=== PATIENT | male | born 1930 | race Caucasian/White ===

== ENCOUNTER 2016-09-26 06:54 | Day surgery (SDC) | payer MEDICARE ==
--- NOTE | 2016-09-20 20:53 | HP ---
ADMITTING HISTORY AND PHYSICAL: DATE OF ADMISSION: 09/26/16 SURGEON: Dr. Muse. ADMITTING DIAGNOSES: 1. Hematuria. 2. 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 3. Recurrent bladder tumors. PLANNED PROCEDURE: Retrograde right ureteroscopy, right stent replacement, possible transurethral resection of bladder tumor. ADMITTING HISTORY AND PHYSICAL: William Grimm is an 86-year-old gentleman with a history of recurrent bladder cancer. He also has what appears to be a transitional cell carcinoma in the right kidney; this had caused hematuria and hydronephrosis. The hydronephrosis has resolved after stent insertion and the family made a decision not to pursue any major surgery such as the right nephrectomy. The idea is try and manage him with the least amount of procedure and he is now being brought in for stent replacement, and at this time, I would plan to place a stent which could be left in for longer (silicone stent). PAST MEDICAL HISTORY: Significant for: 1. Alzheimer's. 2. Superficial bladder cancer. MEDICATIONS ON ADMISSION: 1. Proscar 5 mg a day. 2. Aricept 10 mg a day. 3. Effexor 37.5 mg a day. ALLERGIES: No known drug allergies. PHYSICAL EXAMINATION GENERAL: Reveals a pleasant elderly gentleman. VITAL SIGNS: Blood pressure is 122/78, pulse 72 per minute, oxygen saturation 98% on room air. LUNGS: Clear bilaterally. CARDIOVASCULAR: Regular rate and rhythm. S1 and S2. ABDOMEN: Soft without mass. There is mild right flank tenderness. IMPRESSION: An 86-year-old gentleman with a history of recurrent bladder cancer as well as a tumor in the right kidney. PLAN: Planned procedure is cystoscopy, right retrograde and ureteroscopy, and stent replacement, possible transurethral resection of bladder tumors if there are any recurrent bladder tumors noted. CC: Dr. Muñiz; Dr. Rogelio Muse* [id number]/[facility] #: [id number] MTDD
[~2016-09-26 06:54] MED LIST: Buffered Lidocaine 1% SYR 3ML* 3 ML/SYR SYRINGE INTRADERM ONE; Dexamethasone IV* 4 MG/ML 1 ML (4 MG) IV SLOW PU ONE; Dexamethasone IV* 4 MG/ML 1 ML (4 MG) ONE; Famotidine IV* 10 MG/ML 2 ML (20 mg) IV ONE; Famotidine IV* 10 MG/ML 2 ML (20 mg) ONE; cefTRIAXone(*) 2 GM ADDV.VIAL IVPB ONE
[2016-09-26] MEDS ORDERED: Iohexol 180 (CONTRAST) 10 ML SDV IV ONE ×2 (07:11→09:03)
[2016-09-26] MEDS ORDERED: fentaNYL* 50 MCG/ML 2 ML VIAL (100 MCG VIAL) ONE (07:13)
[2016-09-26] MEDS ORDERED: HYDROmorphone INJ* 1 MG/ML CARPUJECT SYRINGE ONE (07:13)
[2016-09-26] MEDS ORDERED: Midazolam* 1 MG/ML 2 ML VIAL (2 MG) ONE (07:13)
[2016-09-26] MEDS ORDERED: Ondansetron INJ* 2 MG/ML VIAL ONE (08:03)
[2016-09-26] MEDS ORDERED: Lidocaine 2% PF * 5 ML VIAL ONE (08:03)
[2016-09-26] MEDS ORDERED: Ketorolac INJ* 30 MG/ML 1 ML VIAL ONE (08:03)
[2016-09-26] MEDS ORDERED: Propofol* 10 MG/ML 20 ML BTL IV PUSH ONE (08:03)
[2016-09-26] MEDS ORDERED: Furosemide IV* 10 MG/ML 2 ML VIAL (20 MG) ONE (08:23)
[2016-09-26] MEDS ORDERED: EPHEDrine (Pressors)* 50 MG/ML VIAL ONE (08:24)
[2016-09-26] MEDS ORDERED: Ondansetron INJ* 2 MG/ML VIAL IV PRN (08:50)
[2016-09-26] MEDS ORDERED: fentaNYL* 50 MCG/ML 2 ML VIAL (100 MCG VIAL) IV PRN (08:50)
[2016-09-26] MEDS ORDERED: PROCHLORPERAZINE INJ 5 MG/ML 2 ML VIAL IV PRN (08:50)
[2016-09-26] MEDS ORDERED: DiMENhydriNATE IV* 50 MG/ML VIAL IV PUSH PRN (08:50)
--- NOTE | 2016-09-26 09:05 | RAD ---
INDICATION: RIGHT retrograde pyelogram and stent placement. COMPARISON: July 18, 2016 TECHNIQUE: 11 seconds fluoroscopy. FINDINGS: Retrograde pyelogram documents moderate calyceal blunting. Ureteral stent placed with documented decompression of the collecting system. IMPRESSION: Procedural fluoroscopy. CPT II Codes: 6045F
[2016-09-26 10:48] VITALS: BP 122/60
--- NOTE | 2016-09-27 01:38 | OP ---
DATE OF OPERATION: 09/26/16 - [facility] DATE OF : 30 - AGE: 86 years, male. SURGEON: Rogelio Muse MD ANESTHESIOLOGIST: Dr. Logan. ANESTHESIA: General. PRE-OP DIAGNOSES: 1. Right hydronephrosis. 2. Hematuria. 3. 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 4. Bladder tumors. POST-OP DIAGNOSES: 1. Right hydronephrosis. 2. Hematuria. 3. 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 4. Bladder tumors. OPERATIVE PROCEDURES: 1. Cystoscopy. 2. Transurethral resection, bladder tumor (2 to 3 cm). 3. Right retrograde pyelogram and right ureteral stent replacement. COMPLICATIONS: None. STENT USED: An 8.5-Burmese 28-cm silicon stent, right ureter. INDICATIONS: William Grimm is an 86-year-old gentleman with transitional cell neoplasm of the right kidney and recurrent bladder tumors. The family had made a decision that they did not want to proceed with nephrectomy and he is being managed with indwelling stent to relieve the hydronephrosis and pain that had been associated with it. OPERATIVE FINDINGS: 1. Normal-appearing urethra. 2. Mild to moderately enlarged prostate. 3. Two small areas in posterior bladder wall, possibly representing recurrent bladder tumor (appeared superficial). 4. Stricture, right proximal ureter, with right hydronephrosis and filling defect consistent with transitional cell neoplasm, right kidney. POSTOPERATIVE CONDITION: Stable. DESCRIPTION OF PROCEDURE: After induction of general anesthesia, the patient was placed in dorsal lithotomy position. Sequential compression devices were in place and functioning. Initial cystoscopy revealed a normal-appearing urethra. The bladder was examined. The previously placed stent was removed. There were a couple of areas in the posterior bladder wall with an appearance suspicious for superficial transitional cell neoplasm. Director Talent biopsies were obtained and sent for histopathology and then these areas were carefully resected. Next, attention was directed to the right retrograde pyelogram. This revealed a stricture in the proximal right ureter with right hydronephrosis and a filling defect in the renal pelvis. A new 8.5-Burmese 28-cm silicon stent was introduced under fluoroscopic monitoring with good proximal and distal positioning obtained. The patient tolerated the procedure satisfactorily and was transferred back to the recovery area in stable condition. CC: Eric Muñiz MD; Rogelio Muse MD* [id number]/[facility] #: [id number] MARIO
== END 2016-09-26 11:11 | disposition home or self-care (01) ==
LOC: OR 06:54
PROVIDERS: ATTEND Urology
DX: C67.4 Malignant neoplasm of posterior wall of bladder (principal); R31.9 Hematuria, unspecified; N13.30 Unspecified hydronephrosis
CPT/HCPCS: 74420; 88305; C1876; J0696; J1100; J1170; J1885; J1940; J2250; J2405; J2704; J3010

== ENCOUNTER 2017-01-09 06:02 | Day surgery (SDC) | payer MEDICARE ==
--- NOTE | 2017-01-07 11:58 | HP ---
CC: Eric Muñiz MD * ADMITTING HISTORY AND PHYSICAL: DATE OF ADMISSION: 01/09/17 AGE: 86 years, male. ADMISSION DIAGNOSES: 1. Gross hematuria. 2. History of bladder cancer. 3. 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 4. Right hydronephrosis. PLANNED PROCEDURE: Cystoscopy, possible transurethral resection of bladder tumors, right retrograde and right stent change. SURGEON: Dr. Muse. ADMITTING HISTORY AND PHYSICAL: William Grimm is a very pleasant 86-year-old gentleman with history of recurrent episodes of gross hematuria. He has a history of recurrent superficial bladder cancer and also what is probably a transitional cell carcinoma involving the right kidney and proximal ureter and resulting in right hydronephrosis, which has been managed with right stent insertion. I have had a detailed discussion with his family on several occasions and their decision has been to hold of on any major surgery for the right kidney such as a nephrectomy. PAST MEDICAL HISTORY: Significant for: 1. Alzheimer's. 2. Recurrent superficial bladder cancer. MEDICATIONS ON ADMISSION: 1. Aricept 10 mg daily. 2. Proscar 5 mg daily. 3. Effexor 37.5 mg daily. REVIEW OF SYSTEMS: He denies any chest pain or shortness of breath. There is no history of diabetes mellitus or any other major systemic illness. PHYSICAL EXAMINATION GENERAL: Reveals a very pleasant, comfortable-appearing elderly gentleman. VITAL SIGNS: Blood pressure is 110/64, pulse 68 per minute, oxygen saturation 98% on room air. CARDIOVASCULAR: Regular rate and rhythm. S1 and S2. LUNGS: Clear bilaterally. ABDOMEN: Soft with mild right flank tenderness. IMPRESSION: An 86-year-old gentleman with a history of recurrent superficial bladder cancer and right hydronephrosis, likely secondary to transitional cell carcinoma of the right kidney and proximal ureter. PLANNED PROCEDURE: Cystoscopy, possible; transitional resection of bladder tumors, right retrograde and right stent change. [id number]/[facility] #: [id number] [facility]
[~2017-01-09 06:02] MED LIST changes: +Buffered Lidocaine 0.9% SYRIN* 5 ML/SYR SYRINGE INTRADERM ONE; -Buffered Lidocaine 1% SYR 3ML* 3 ML/SYR SYRINGE INTRADERM ONE; -Dexamethasone IV* 4 MG/ML 1 ML (4 MG) IV SLOW PU ONE; -Dexamethasone IV* 4 MG/ML 1 ML (4 MG) ONE; -Famotidine IV* 10 MG/ML 2 ML (20 mg) IV ONE; -Famotidine IV* 10 MG/ML 2 ML (20 mg) ONE; -cefTRIAXone(*) 2 GM ADDV.VIAL IVPB ONE
[2017-01-09] MEDS ORDERED: Buffered Lidocaine 0.9% SYRIN* 5 ML/SYR SYRINGE ONE (06:06)
[2017-01-09] MEDS ORDERED: cefTRIAXone(*) 2 GM ADDV.VIAL IVPB ONE (06:06)
[2017-01-09] MEDS ORDERED: Iohexol 180 (CONTRAST) 10 ML SDV IV ONE (07:21)
[2017-01-09] MEDS ORDERED: fentaNYL* 50 MCG/ML 2 ML VIAL (100 MCG VIAL) ONE ×2 (07:59→09:00)
[2017-01-09] MEDS ORDERED: Propofol* 10 MG/ML 20 ML BTL IV PUSH ONE (08:49)
[2017-01-09] MEDS ORDERED: Lidocaine 2% PF * 5 ML VIAL ONE (08:49)
[2017-01-09] MEDS: fentaNYL* 50 MCG/ML 2 ML VIAL (100 MCG VIAL) IV PRN ×2 (09:04→09:22)
[2017-01-09] MEDS ORDERED: Furosemide IV* 10 MG/ML 2 ML VIAL (20 MG) ONE ×2 (09:26→14:43)
--- NOTE | 2017-01-09 09:33 | RAD ---
INDICATION: RIGHT retrograde pyelogram/ stent exchange. TECHNIQUE: 5 seconds fluoroscopy. FINDINGS: RIGHT retrograde pyelogram demonstrates only mild upper pole calyceal blunting. RIGHT ureteral stent placed. IMPRESSION: Procedural fluoroscopy. CPT II Codes: 6045F
--- NOTE | 2017-01-09 10:19 | OP ---
CC: Dr. Eric Muñiz * DATE OF OPERATION: 01/09/17 - [facility] DATE OF : 30 SURGEON: Rogelio Muse MD ANESTHESIOLOGIST: Dr. Smith. ANESTHESIA: General. PRE-OPERATIVE DIAGNOSES: 1. Recurrent superficial bladder cancer. 2. Right hydronephrosis. 3. 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 POST-OPERATIVE DIAGNOSES: 1. Recurrent superficial bladder cancer. 2. Right hydronephrosis. 3. 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 OPERATIVE PROCEDURE: 1. Cystoscopy, transurethral resection and fulguration of bladder tumors (2-3 cm). 2. Right retrograde and right ureteral stent change. COMPLICATIONS: None. BLOOD LOSS: Minimal. STENT USED: 8.5 Uzbek 28 cm silicone stent, right ureter. INDICATIONS: William Grimm is an 86-year-old gentleman with a history of recurrent superficial bladder cancer, right hydronephrosis and a probable transitional cell carcinoma of the right kidney. OPERATIVE FINDINGS: 1. Few small superficial recurrent bladder tumors, posterior bladder wall. 2. Fullness of the right collecting system with filling defects noted consistent with probable transitional cell carcinoma. DESCRIPTION OF PROCEDURE: After induction of general anesthesia, the patient was placed in dorsal lithotomy position. Sequential compression devices were in place and functioning. Initial cystoscopy revealed mild strictures in the distal urethra. The prostate was mildly enlarged. The bladder was examined. The previous placed stent was removed. A guidewire was introduced into the right ureter. Retrograde pyelogram revealed fullness of the right collecting system with filling defects consistent with transitional cell carcinoma. A new 8.5 Uzbek 28 cm silicone stent was placed with good proximal and distal positioning noted on fluoroscopy. Attention was directed to the bladder tumor. There were few small papillary low - grade appearing tumors noted in the posterior bladder wall and treasury representative biopsies were obtained and sent for histopathology. Next, using the resecto- scope, all of the visible tumors were resected and/or fulgurated. Hemostasis appeared satisfactory at the end of the procedure and there was no evidence of bladder perforation. An 18-Uzbek Quevedo was placed for temporary bladder drainage. The patient tolerated the procedure satisfactorily and was transferred back to the recovery area in stable condition. [id number]/[facility] #: [id number] [facility]
[2017-01-09 16:00] VITALS: BP 171/75
== END 2017-01-09 16:35 | disposition home or self-care (01) ==
LOC: OR 06:02
PROVIDERS: ATTEND Urology
DX: C67.4 Malignant neoplasm of posterior wall of bladder (principal); N13.30 Unspecified hydronephrosis; Z96.0 Presence of urogenital implants; N35.9 Urethral stricture, unspecified; N40.0 Benign prostatic hyperplasia without lower urinary tract symptoms; G30.9 Alzheimer's disease, unspecified; F02.80 Dementia in other diseases classified elsewhere, unspecified severity, without behavioral disturbance, psychotic disturbance, mood disturbance, and anxiety
CPT/HCPCS: 74420; 88305; C1876; J0696; J1940; J2704; J3010

== ENCOUNTER 2017-01-10 20:42 | Inpatient (IN) | payer MEDICARE ==
[2017-01-10] MEDS ORDERED: NS 0.9% 1000 ML* 1,000 ML IV ONE (23:47)
[2017-01-10] MEDS ORDERED: Morphine INJ* 2 MG/ML 1 ML SYRINGE IV ONE (23:47)
[2017-01-11 00:32] LABS: Albumin 3.4 g/dL (3.2-5.2); BUN/Creatinine Ratio 14.8 (8-20); C Reactive Protein 214.88 mg/L (< 5.00); Calcium 8.8 mg/dL (8.6-10.3); EGFR African American 37.5 (>60); EGFR Non-African American 29.1 (>60); Globulin 3.1 g/dL (2-4); Magnesium 1.9 mg/dL (1.9-2.7); Potassium 4.4 mmol/L (3.5-5.0); Total Bilirubin 0.7 mg/dL (0.2-1.0); Total Protein 6.5 g/dL (6.4-8.9)
[2017-01-11 00:37] LABS: Add Diff/Slide Review? Slide Review Added; Comments Flag Yes; Hematocrit 29 % (42-52); Hemoglobin 9.8 g/dl (14.0-18.0); Mean Corpuscular HGB Conc 34 g/dl (31-36); Mean Corpuscular Hemoglobin 29 pg (27-31); Mean Corpuscular Volume 86 fL (80-94); Mean Platelet Volume 7 um3 (7.4-10.4); Red Blood Count 3.42 10^6/ul (4.0-5.4); Red Cell Distribution Width 15 % (10.5-15); White Blood Count 19.9 10^3/ul (3.5-10.8)
[2017-01-11 01:32] LABS: Urine Bacteria 1+ (Absent); Urine Bilirubin Negative (Negative); Urine Glucose Negative (Negative); Urine Nitrite Negative (Negative)
[2017-01-11] MEDS ORDERED: Levofloxacin 500 MG IVPREMIX(* 500 MG/100 ML BAG IVPB ONE (01:42)
[2017-01-11] MEDS ORDERED: Acetaminophen TAB* 325 MG PO PRN (02:02)
[2017-01-11] MEDS ORDERED: hydrALAZINE IV* 20 MG/ML VIAL IV PRN (02:04)
[2017-01-11] MEDS ORDERED: Ondansetron INJ* 2 MG/ML VIAL IV PRN (02:05)
[2017-01-11] MEDS ORDERED: traMADol TAB* 50 MG PO PRN (02:05)
--- NOTE | 2017-01-11 03:32 | HP ---
H&P (Free Text) History and Physical: PCP: Lazaro Muñiz MD Date/Time of Evaluation: 01/11/2017 0150 CC: abdominal pain HPI: Mr Grimm is an 86YO pleasantly demented male HX bladder CA s/p cystoscopic tumor resection and ureteral stenting 01/09/2017 who presents with onset yesterday evening of sharp pains seeming to come from the L groin initially, but becoming more diffuse through the day. There has been no F/C, N/V , or sweats. His urine output is reportedly normal, no bloody. His appetite was good up until supper evening. CT reveals some free fluid, possibly a urine leak, but no other overt abnormality. Nacho Rizzo MD ED consulted Karen Muse MD urology who advised vargas placement, initiation of ABX, and he will evaluate in the AM. PMedHx Alzheimers dementia recurrent superficial bladder CA anemia BPH depression Ambulatory Orders Donepezil TAB* [Aricept TAB*] 10 mg PO QPM 02/29/16 Finasteride TAB* [Proscar TAB*] 5 mg PO 1200 02/29/16 Multiple Vitamin [Multiple Vitamins] 1 tab PO DAILY 02/29/16 Nitroglycerin TAB 0.4 MG* 0.4 mg SL . NEEDED PRN 02/29/16 Venlafaxine EXT RELEASE CAP* [Effexor Xr CAP*] 2 cap PO QAM 02/29/16 Allergies No Known Allergies Allergy (Verified 01/09/17 06:27) PSurgHx multiple cystoscopies for bladder CA SocHx: no tobacco, alcohol, or recreational drugs; lives with his ; retired internship coordinator; DNR code status FamHx: positive for HTN ROS: as above, otherwise reviewed and all were negative Constitutional: NAD, normally developed, well-nourished elderly white male vitals: Vital Signs Temp 36.9 C 01/10/17 22:14 Pulse 109 01/11/17 03:00 Resp 20 01/11/17 00:05 BP 126/53 01/11/17 02:00 Pulse Ox 96 01/11/17 03:00 Intake & Output 01/10/17 01/10/17 01/11/17 11:59 23:59 11:59 Weight 63.503 kg HEENM: atraumatic; sclera/conjunctiva: non-icteric/clear; hearing: clinically mild to moderately decreased; oropharynx: clear, mucosa moist Neck: soft tissue: non-tender; thyroid: normal Pulmonary: clear to auscultation bilaterally, good aeration, no accessory muscle use CV: RR/RR, normal S1S2, no carotid bruit, no jugular venous distention, 2+ B DP/ PT, no edema Abdominal: soft, non-distended, diffusely moderately tender with voluntary guarding but no rebound/rigidity, normoactive bowel sounds, no hepatosplenomegaly or masses, no costovertebral angle tenderness Musculoskeletal: general: grossly intact; gait: stable Integumental: normal appearance and texture of exposed skin Psychiatric orientation: AA&O to person & place affect: calm mood: resistive of abdominal exam, but mostly cooperative eye contact: fair content: unreliable responses: timely insight: fair to poor Testing: Laboratory Results - last 24 hr 01/11/17 01/11/17 01/11/17 00:10 00:10 00:10 WBC 19.9 H RBC 3.42 L Hgb 9.8 L Hct 29 L MCV 86 MCH 29 MCHC 34 RDW 15 Plt Count 308 MPV 7 L Neut % (Auto) 88.7 H Lymph % (Auto) 5.1 L [place] % (Auto) 5.7 Eos % (Auto) 0.3 Baso % (Auto) 0.2 Absolute Neuts (auto) 17.7 H Absolute Lymphs (auto) 1.0 Absolute Monos (auto) 1.1 H Absolute Eos (auto) 0.1 Absolute Basos (auto) 0 Absolute Nucleated RBC 0 Nucleated RBC % 0 Sodium 125 L Potassium 4.4 Chloride 94 L Carbon Dioxide 20 L Anion Gap 11 BUN 32 H Creatinine 2.16 H Est GFR ( Amer) 37.5 Est GFR (Non-Af Amer) 29.1 BUN/Creatinine Ratio 14.8 Glucose 95 Lactic Acid 1.0 Calcium 8.8 Magnesium 1.9 Total Bilirubin 0.70 AST 15 ALT 8 Alkaline Phosphatase 79 C-Reactive Protein 214.88 H Total Protein 6.5 Albumin 3.4 Globulin 3.1 Albumin/Globulin Ratio 1.1 Urine Color Urine Appearance Urine pH Ur Specific [place] Urine Protein Urine Ketones Urine Blood Urine Nitrate Urine Bilirubin Urine Urobilinogen Ur Leukocyte Esterase Urine WBC (Auto) Urine RBC (Auto) Ur Squamous Epith Cells Urine Bacteria Urine Glucose 06/23/17 01:10 WBC RBC Hgb Hct MCV MCH MCHC RDW Plt Count MPV Neut % (Auto) Lymph % (Auto) [place] % (Auto) Eos % (Auto) Baso % (Auto) Absolute Neuts (auto) Absolute Lymphs (auto) Absolute Monos (auto) Absolute Eos (auto) Absolute Basos (auto) Absolute Nucleated RBC Nucleated RBC % Sodium Potassium Chloride Carbon Dioxide Anion Gap BUN Creatinine Est GFR ( Amer) Est GFR (Non-Af Amer) BUN/Creatinine Ratio Glucose Lactic Acid Calcium Magnesium Total Bilirubin AST ALT Alkaline Phosphatase C-Reactive Protein Total Protein Albumin Globulin Albumin/Globulin Ratio Urine Color Yellow Urine Appearance Cloudy Urine pH 5.0 Ur Specific [place] 1.006 L Urine Protein 1+(30 mg/dl) H Urine Ketones Trace H Urine Blood 2+ H Urine Nitrate Negative Urine Bilirubin Negative Urine Urobilinogen Negative Ur Leukocyte Esterase 2+ H Urine WBC (Auto) 3+(>20/hpf) H Urine RBC (Auto) 2+(6-10/hpf) H Ur Squamous Epith Cells Present H Urine Bacteria 1+ H Urine Glucose Negative CT abd/pel WO, personally reviewed: IMPRESSION: 12.3cm anterior pelvic extraperitoneal fluid collection could represent urine leak and/or urinoma, just above the space of Retzius. No hydronephrosis. Probable mild cystitis. Mild prostate enlargement. Small left inguinal hernia containing sigmoid colon without bowel obstruction. Questionable anasarca. Impression: 86M presenting with UTI 1day s/p cystoscopic bladder resection of recurrent superficial CA & ureteral stenting DIAGNOSIS & PLAN Primary urine leak +/- UTI : levofloxacin IV : IVFs : trend leukocytosis : blood & urine CXs : vargas to gravity : strict I&Os : daily weights : as operative surgeon, Karen Muse MD urology was contacted & will follow : pain control : supportive care Secondary Alzheimers dementia : review meds once reconciled recurrent superficial bladder CA : continue urologic follow up depression : review meds once reconciled Admission Rational: inpatient for UTI s/p cystoscopy w/ tumor resection & ureteral stenting DVTp: heparin SQ & SCDs Code Status: DNR HCP:
[2017-01-11] MEDS ORDERED: Morphine INJ* 2 MG/ML 1 ML SYRINGE IV ONE (04:12)
[2017-01-11] MEDS ORDERED: Morphine INJ* 2 MG/ML 1 ML SYRINGE ONE (04:14)
[2017-01-11] MEDS: NS 0.9% 1000 ML* 1,000 ML IV SCH ×2 (06:04→16:35)
[2017-01-11] MEDS: Phenazopyridine TAB* 100 MG PO SCH ×4 (06:36→20:55)
[2017-01-11] MEDS: oxyCODONE TAB* 5 MG TAB PO PRN (06:37)
[2017-01-11] MEDS: Omeprazole CAP* 20 MG PO SCH (06:37)
[2017-01-11 07:04] LABS: Hematocrit 30 % (42-52); Hemoglobin 9.8 g/dl (14.0-18.0); Mean Corpuscular HGB Conc 33 g/dl (31-36); Mean Corpuscular Hemoglobin 29 pg (27-31); Mean Corpuscular Volume 87 fL (80-94); Mean Platelet Volume 7 um3 (7.4-10.4); Red Blood Count 3.43 10^6/ul (4.0-5.4); Red Cell Distribution Width 15 % (10.5-15); White Blood Count 20.9 10^3/ul (3.5-10.8)
[2017-01-11 07:16] LABS: BUN/Creatinine Ratio 13.6 (8-20); Calcium 8.2 mg/dL (8.6-10.3); EGFR African American 38.1 (>60); EGFR Non-African American 29.6 (>60); Potassium 4.2 mmol/L (3.5-5.0)
--- NOTE | 2017-01-11 08:02 | RAD ---
Indication: Lower abdominal pain, ureteral stent placement. CT of the abdomen and pelvis was performed without oral or IV contrast administration. Comparison is made with previous exam dated July 05, 2016. Lung bases demonstrate emphysematous changes and scarring. Scarring is noted in the right middle lobe. No pleural fluid is identified. The heart is of normal size without evidence of pericardial effusion. Liver is normal in size. No focal lesions are identified. No intrahepatic ductal dilatation is noted. The gallbladder demonstrates no calcified gallstones. No pericholecystic fluid or wall thickening is identified. The pancreas demonstrates no mass or pancreatic ductal dilatation. The spleen is normal in size. A right ureteral stent is noted in the mildly enlarged right kidney and hydroureter. The left renal collecting system is not dilated. The aorta and vena cava demonstrates no aneurysmal dilatation. Small interaortocaval lymph nodes are noted measuring 10 mm in the short axis. No dilated loops of bowel are noted. The colon is filled with stool. CT of the pelvis demonstrates a fluid collection between the urinary bladder and the anterior abdominal wall. This measures approximately 11 x 10 x 4.4 cm. It is homogeneously low density and may represent a fluid collection such as a urinoma. Bladder leak is not excluded. Additionally a hematoma that is liquefied is not excluded. A small amount of air is noted in the urinary bladder. The prostate is enlarged. There is a left-sided direct type inguinal hernia containing colon without definite evidence of obstruction. Mild diffuse wall thickening of the urinary bladder is noted. IMPRESSION: THERE IS A FLUID COLLECTION UNDER THE RECTUS MUSCLE ANTERIOR TO THE URINARY BLADDER DESCRIBED ABOVE MEASURING 11 X 10 X 4.4 CM SUSPICIOUS FOR URINOMA OR URINE LEAK. IT IS HOMOGENEOUSLY LOW DENSITY. OLD HEMATOMA IS NOT EXCLUDED. LEFT DIRECT TYPE INGUINAL HERNIA CONTAINING COLON. RIGHT HYDRONEPHROSIS WITH RIGHT URETERAL STENT PLACED.
--- NOTE | 2017-01-11 08:08 | PN ---
Subjective - Subjective Reason for Note: Progress Note History: I obtained the history directly from Dr. uMse - who has written a note in the handwritten progress notes. 01/09/2017 - he had a TURP, replacement of right ureteric stent and resection/fulguration of 2 - 3 cm bladder tumors. The family preferred not to leave in a Vargas catheter owing to his dementia and likelihood of pulling it out. He presents with retention, extrabladder leak, UTI and sepsis. He is awake and alert, but unable to give an account of himself. He denies any pain on direct questioning. 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 Urinary tract infection (Acute) Anemia (Chronic) D64.9 Dementia (Chronic) F03.90 Prediabetes (Chronic) R73.03 Current Medications: Current Medications Acetaminophen (Tylenol Tab*) 650 mg PO Q6H PRN PRN Reason: FEVER/PAIN Docusate Sodium (Colace Cap*) 200 mg PO BID BELLA Donepezil HCl (Aricept Tab*) 10 mg PO QPM BELLA Finasteride (Proscar Tab*) 5 mg PO 1200 [facility] Heparin Sodium (Porcine) (Heparin Vial(*)) 5,000 units SUBCUT Q8HR [facility] Hydralazine HCl (Apresoline Iv*) 10 mg IV Q4H PRN PRN Reason: Systolic >170 Levofloxacin/Dextrose (Levaquin 250 Mg Ivpremx(*)) 250 mg in 50 mls @ 33.333 mls/hr IVPB Q24H [facility] Sodium Chloride (Ns 0.9% 1000 Ml*) 1,000 mls @ 100 mls/hr IV PER RATE [facility] Last Admin: 01/11/17 06:04 Dose: 100 mls/hr Melatonin (Melatonin (Nf)) 3 mg PO BEDTIME PRN; Protocol PRN Reason: Sleep Omeprazole (Prilosec Cap*) 20 mg PO DAILY@0600 [facility] Last Admin: 01/11/17 06:37 Dose: 20 mg Ondansetron HCl (Zofran Inj*) 4 mg IV Q6H PRN PRN Reason: NAUSEA Oxycodone HCl (Roxycodone Tab*) 5 mg PO Q4H PRN PRN Reason: PAIN Last Admin: 01/11/17 06:37 Dose: 5 mg Phenazopyridine HCl (Pyridium Tab*) 200 mg PO TID [facility] Last Admin: 01/11/17 06:36 Dose: 200 mg Tramadol HCl (Ultram*) 50 mg PO Q12H PRN PRN Reason: PAIN Venlafaxine HCl (Effexor Xr Cap*) mg PO QAM [facility] Home Medications: Home Medications Medication Instructions Recorded Confirmed Type Donepezil TAB* [Aricept TAB*] 10 mg PO QPM 02/29/16 01/11/17 History Finasteride TAB* [Proscar TAB*] 5 mg PO 1200 02/29/16 01/11/17 History Multiple Vitamin [Multiple 1 tab PO DAILY 02/29/16 01/11/17 History Vitamins] Nitroglycerin TAB 0.4 MG* 0.4 mg SL . NEEDED PRN 02/29/16 01/11/17 History Venlafaxine EXT RELEASE CAP* 2 cap PO QAM 02/29/16 01/11/17 History [Effexor Xr CAP*] Allergies: Allergies Allergy/AdvReac Type Severity Reaction Status Date / Time No Known Allergies Allergy Verified 01/09/17 06:27 Objective - Vital Signs Vital Signs: Vital Signs 01/11/17 01/11/17 01/11/17 02:00 02:28 03:00 Temperature Pulse Rate 104 109 Respiratory Rate Blood Pressure 126/53 (mmHg) O2 Sat by Pulse 95 96 Oximetry 01/11/17 01/11/17 01/11/17 04:00 04:19 04:47 Temperature Pulse Rate 105 106 Respiratory 16 Rate Blood Pressure 135/62 (mmHg) O2 Sat by Pulse 96 95 Oximetry 01/11/17 01/11/17 01/11/17 05:05 05:09 05:12 Temperature 98.5 F 98.5 F Pulse Rate 104 104 Respiratory 16 16 16 Rate Blood Pressure 144/67 144/67 (mmHg) O2 Sat by Pulse 96 96 Oximetry 01/11/17 01/11/17 01/11/17 05:19 06:19 06:37 Temperature Pulse Rate Respiratory 16 16 16 Rate Blood Pressure (mmHg) O2 Sat by Pulse Oximetry - Intake and Output Intake and Output: Intake & Output 01/08/17 01/09/17 01/10/17 01/11/17 11:59 11:59 11:59 11:59 Intake Total 100 Balance 100 Weight 140 lb Intake: IV Fluids 100 ADLs: Meal Record Start: 01/11/17 03: 53 Freq: Status: Active Created 01/11/17 03:53 System (Rec: 01/11/17 03:53 System [id number]) Intake and Output Start: 01/10/17 20: 50 Freq: Status: Active Created 01/10/17 20:50 System (Rec: 01/10/17 20:50 System [id number]) Intake and Output Start: 01/11/17 03: 53 Freq: DAILY@0600,1400,2200 Status: Active Created 01/11/17 03:53 System (Rec: 01/11/17 03:53 System [id number]) - Physical Exam General Physical Exam Comment: He is diaphoretic and warm General: No Cyanosis, Yes Anemia, No Jaundice, No Lymphadenopathy, No Clubbing Skin: Normal: Rash Lungs and Chest: Yes: Chest Expansion Full, Chest Expansion Symetrica, Percussion Note Resonant, Vessicular Breath Sounds. No: Crackles, Wheezes, Respiratory Distress, Use of Accessory Muscles Heart Rate and Rhythm: Regular Additional Cardiovascular: Yes: Normal Heart Sounds. No: Heart Murmur, Pedal Edema Abdominal Exam: Yes: Soft, Abdominal Tenderness - suprapubic region and both lower quadrants, Bowel Sounds Present. No: Distention, Rigidity, Abdominal Mass , Hepatomegaly, Guarding, Rebound Tenderness - Extremities Cranial Nerves II-XII Intact: Yes Limbs: Normal Power, Normal Tone - Neuro Orientation: Person Speech: Normal Results - Results Lab Results: Laboratory Results - last 24 hr 01/11/17 01/11/17 06:30 06:30 WBC 20.9 H RBC 3.43 L Hgb 9.8 L Hct 30 L MCV 87 MCH 29 MCHC 33 RDW 15 Plt Count 317 MPV 7 L Neut % (Auto) 91.1 H Lymph % (Auto) 3.5 L [place] % (Auto) 5.2 Eos % (Auto) 0.1 Baso % (Auto) 0.1 Absolute Neuts (auto) 19.0 H Absolute Lymphs (auto) 0.7 L Absolute Monos (auto) 1.1 H Absolute Eos (auto) 0 Absolute Basos (auto) 0 Absolute Nucleated RBC 0 Nucleated RBC % 0 Sodium 126 L Potassium 4.2 Chloride 96 L Carbon Dioxide 19 L Anion Gap 11 BUN 29 H Creatinine 2.13 H Est GFR ( Amer) 38.1 Est GFR (Non-Af Amer) 29.6 BUN/Creatinine Ratio 13.6 Glucose 105 H Calcium 8.2 L Radiology Results: Patient Name: SADIQ OVERTON Medical Record#: [id number] Ordering Physician: Wang Rizzo MD Acct.#: [id number] : 1930 Age: 86 Sex: M Location: SURGICAL STAY UNIT Exam Date: 01/10/172347 ADM Status: ADM IN Order Information: CT ABD/PEL W/O Accession Number: [id number] CPT: 28895 Indication: Lower abdominal pain, ureteral stent placement. CT of the abdomen and pelvis was performed without oral or IV contrast administration. Comparison is made with previous exam dated July 05, 2016. Lung bases demonstrate emphysematous changes and scarring. Scarring is noted in the right middle lobe. No pleural fluid is identified. The heart is of normal size without evidence of pericardial effusion. Liver is normal in size. No focal lesions are identified. No intrahepatic ductal dilatation is noted. The gallbladder demonstrates no calcified gallstones. No pericholecystic fluid or wall thickening is identified. The pancreas demonstrates no mass or pancreatic ductal dilatation. The spleen is normal in size. A right ureteral stent is noted in the mildly enlarged right kidney and hydroureter. The left renal collecting system is not dilated. The aorta and vena cava demonstrates no aneurysmal dilatation. Small interaortocaval lymph nodes are noted measuring 10 mm in the short axis. No dilated loops of bowel are noted. The colon is filled with stool. CT of the pelvis demonstrates a fluid collection between the urinary bladder and the anterior abdominal wall. This measures approximately 11 x 10 x 4.4 cm. It is homogeneously low density and may represent a fluid collection such as a urinoma. Bladder leak is not excluded. Additionally a hematoma that is liquefied is not excluded. A small amount of air is noted in the urinary bladder. The prostate is enlarged. There is a left-sided direct type inguinal hernia containing colon without definite evidence of obstruction. Mild diffuse wall thickening of the urinary bladder is noted. IMPRESSION: THERE IS A FLUID COLLECTION UNDER THE RECTUS MUSCLE ANTERIOR TO THE URINARY BLADDER DESCRIBED ABOVE MEASURING 11 X 10 X 4.4 CM SUSPICIOUS FOR URINOMA OR URINE LEAK. IT IS HOMOGENEOUSLY LOW DENSITY. OLD HEMATOMA IS NOT EXCLUDED. LEFT DIRECT TYPE INGUINAL HERNIA CONTAINING COLON. RIGHT HYDRONEPHROSIS WITH RIGHT URETERAL STENT PLACED. <Electronically signed by Elina Pepper MD in [place]> 01/11/17758 Dictated By: Elina Pepper MD Dictated Date/Time: 01/11/17758 Transcribed Date/Time: 01/11/17751 Copy to: 1 of 2 Assessment - Problem List Assessment: Patient Problems Altered mental state (Acute) Bladder leak (Acute) Retained ureteral stent (Acute) S/P TURP (Acute) Sepsis (Acute) Transitional cell carcinoma, bladder (Acute) Urinary tract infection (Acute) Anemia (Chronic) Dementia (Chronic) Prediabetes (Chronic) Plan: Urinary tract infection (Acute) Sepsis (Acute)Altered mental state (Acute) Bladder leak (Acute)Retained ureteral stent (Acute)S/P TURP (Acute) Transitional cell carcinoma, bladder (Acute) He is 2 days post TURP, cystoscopic resection of bladder carcinomas and right ureteric stent removal by Dr. Muse. 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 According to Dr. Muse , placement of a catheter will lead to improvement of this. The patient meets criteria for SIRS (WBC, [place]). On 12/31/2016 he had a negative urine culture. He is receiving IV levofloxacin and has a vargas cath in situ. I will follow his clinical course. Anemia (Chronic) exacerbated by recent surgery and acute phase response. No indication for transfusion Dementia (Chronic) He lacks capacity Prediabetes (Chronic) Stress has not exacerbated this. Discussed with his Siri. I explained the above and she agrees with the management planHe has a MOSLT form - she will bring this in. He is DNR.
[2017-01-11] MEDS ORDERED: Venlafaxine EXT RELEASE CAP* 75 MG PO SCH (09:00)
[2017-01-11] MEDS: Docusate CAP* 100 MG PO SCH ×2 (09:03→20:55)
[2017-01-11] MEDS: Venlafaxine EXT RELEASE CAP* 37.5 MG PO SCH (09:03)
[2017-01-11] MEDS: Finasteride TAB* 5 MG PO SCH (14:52)
[2017-01-11] MEDS: Donepezil TAB* 5 MG PO SCH (17:42)
[2017-01-12] MEDS: CMCS: Melatonin (NF) 3 MG TAB PO PRN ×2 (00:42→22:38)
[2017-01-12] MEDS: Levofloxacin 250 MG IVPREMX(*) 250 MG/50 ML BAG IVPB SCH (02:32)
[2017-01-12] MEDS: Omeprazole CAP* 20 MG PO SCH (05:39)
[2017-01-12] MEDS: Heparin VIAL(*) 5000 UNITS/ML VIAL (FIVE THOUSAND) SUBCUT SCH ×3 (05:39→21:29)
[2017-01-12 07:37] LABS: Hematocrit 28 % (42-52); Hemoglobin 9.1 g/dl (14.0-18.0); Mean Corpuscular HGB Conc 33 g/dl (31-36); Mean Corpuscular Hemoglobin 29 pg (27-31); Mean Corpuscular Volume 88 fL (80-94); Mean Platelet Volume 7 um3 (7.4-10.4); Red Blood Count 3.18 10^6/ul (4.0-5.4); Red Cell Distribution Width 15 % (10.5-15); White Blood Count 15.2 10^3/ul (3.5-10.8)
[2017-01-12 07:46] LABS: Add Diff/Slide Review? Slide Review Added; Comments Flag Yes
[2017-01-12 07:49] LABS: BUN/Creatinine Ratio 18.3 (8-20); C Reactive Protein 204.35 mg/L (< 5.00); Calcium 8.3 mg/dL (8.6-10.3); EGFR African American 60.8 (>60); EGFR Non-African American 47.3 (>60); Potassium 4.2 mmol/L (3.5-5.0)
[2017-01-12] MEDS: Phenazopyridine TAB* 100 MG PO SCH ×3 (08:49→21:27)
[2017-01-12] MEDS: Docusate CAP* 100 MG PO SCH ×2 (08:49→21:28)
[2017-01-12] MEDS: Venlafaxine EXT RELEASE CAP* 37.5 MG PO SCH (08:49)
--- NOTE | 2017-01-12 09:12 | PN ---
Subjective - Subjective Reason for Note: Progress Note History: He has underlying dementia - disoriented place, time. He cannot give an account of himself and doesn't recognize me. He is in no pain or distress. 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 Urinary tract infection (Acute) Anemia (Chronic) D64.9 Dementia (Chronic) F03.90 Prediabetes (Chronic) R73.03 Current Medications: Current Medications Acetaminophen (Tylenol Tab*) 650 mg PO Q6H PRN PRN Reason: FEVER/PAIN Last Admin: 01/12/17 00:42 Dose: 650 mg Docusate Sodium (Colace Cap*) 200 mg PO BID [facility] Last Admin: 01/11/17 20:55 Dose: 200 mg Donepezil HCl (Aricept Tab*) 10 mg PO QPM [facility] Last Admin: 01/11/17 17:42 Dose: 10 mg Finasteride (Proscar Tab*) 5 mg PO 1200 [facility] Last Admin: 01/11/17 14:52 Dose: 5 mg Heparin Sodium (Porcine) (Heparin Vial(*)) 5,000 units SUBCUT Q8HR [facility] Last Admin: 01/12/17 05:39 Dose: 5,000 units Hydralazine HCl (Apresoline Iv*) 10 mg IV Q4H PRN PRN Reason: Systolic >170 Levofloxacin/Dextrose (Levaquin 250 Mg Ivpremx(*)) 250 mg in 50 mls @ 33.333 mls/hr IVPB Q24H [facility] Last Admin: 01/12/17 02:32 Dose: 33.333 mls/hr Melatonin (Melatonin (Nf)) 3 mg PO BEDTIME PRN; Protocol PRN Reason: Sleep Last Admin: 01/12/17 00:42 Dose: 3 mg Omeprazole (Prilosec Cap*) 20 mg PO DAILY@0600 [facility] Last Admin: 01/12/17 05:39 Dose: 20 mg Ondansetron HCl (Zofran Inj*) 4 mg IV Q6H PRN PRN Reason: NAUSEA Oxycodone HCl (Roxycodone Tab*) 5 mg PO Q4H PRN PRN Reason: PAIN Last Admin: 01/11/17 06:37 Dose: 5 mg Phenazopyridine HCl (Pyridium Tab*) 200 mg PO TID [facility] Last Admin: 01/11/17 20:55 Dose: 200 mg Tramadol HCl (Ultram*) 50 mg PO Q12H PRN PRN Reason: PAIN Venlafaxine HCl (Effexor Xr Cap*) 37.5 mg PO DAILY [facility] Last Admin: 01/11/17 09:03 Dose: 37.5 mg Home Medications: Home Medications Medication Instructions Recorded Confirmed Type Donepezil TAB* [Aricept TAB*] 10 mg PO QPM 02/29/16 01/11/17 History Finasteride TAB* [Proscar TAB*] 5 mg PO 1200 02/29/16 01/11/17 History Multiple Vitamin [Multiple 1 tab PO DAILY 02/29/16 01/11/17 History Vitamins] Nitroglycerin TAB 0.4 MG* 0.4 mg SL . NEEDED PRN 02/29/16 01/11/17 History Venlafaxine EXT RELEASE CAP* 2 cap PO QAM 02/29/16 01/11/17 History [Effexor Xr CAP*] Allergies: Allergies Allergy/AdvReac Type Severity Reaction Status Date / Time No Known Allergies Allergy Verified 01/09/17 06:27 Objective - Vital Signs Vital Signs: Vital Signs 01/11/17 01/11/17 01/11/17 08:58 09:00 15:36 Temperature 97.9 F 97.9 F Pulse Rate 105 69 Respiratory 22 22 17 Rate Blood Pressure 116/42 120/52 (mmHg) O2 Sat by Pulse 98 99 Oximetry 01/11/17 01/11/17 01/11/17 19:37 20:00 23:23 Temperature 98.0 F 98.8 F Pulse Rate 76 109 Respiratory 15 17 20 Rate Blood Pressure 135/66 124/68 (mmHg) O2 Sat by Pulse 100 96 Oximetry 01/11/17 01/12/17 01/12/17 23:28 03:49 07:15 Temperature 98.0 F 97.5 F Pulse Rate 96 78 71 Respiratory 17 18 16 Rate Blood Pressure 132/64 143/64 (mmHg) O2 Sat by Pulse 96 95 Oximetry 01/12/17 07:37 Temperature Pulse Rate Respiratory 18 Rate Blood Pressure (mmHg) O2 Sat by Pulse Oximetry - Intake and Output Intake and Output: Intake & Output 01/09/17 01/10/17 01/11/17 01/12/17 11:59 11:59 11:59 11:59 Intake Total 100 2533 Output Total 0 Balance 100 483 Weight 140 lb 146 lb 14.4 oz Intake: IV Fluids 100 1203 NS (0.9%) 1203 IVPB 50 ABX - LEVOFLOXACIN 50 Oral 1280 Output: Quevedo 2049 Other: # Bowel Movements 0 ADLs: Meal Record Start: 01/11/17 03: 53 Freq: Status: Active Created 01/11/17 03:53 System (Rec: 01/11/17 03:53 System [id number]) Document 01/11/17 10:22 [id number] (Rec: 01/11/17 10:22 [id number] [id number]) Document 01/11/17 19:11 [id number] (Rec: 01/11/17 19:12 [id number] SSU-C02) Intake and Output Start: 01/10/17 20: 50 Freq: Status: Active Created 01/10/17 20:50 System (Rec: 01/10/17 20:50 System [id number]) Intake and Output Start: 01/11/17 03: 53 Freq: DAILY@0600,1400,2200 Status: Active Created 01/11/17 03:53 System (Rec: 01/11/17 03:53 System [id number]) Document 01/11/17 14:00 [id number] (Rec: 01/11/17 15:30 [id number] SSU-C19) Document 01/11/17 21:03 [id number] (Rec: 01/11/17 21:04 [id number] SSU-C19) Document 01/11/17 21:49 [id number] (Rec: 01/11/17 21:49 [id number] SSU-C19) Document 01/12/17 05:45 [id number] (Rec: 01/12/17 05:45 [id number] SSU-M05) Document 01/12/17 05:46 [id number] (Rec: 01/12/17 05:46 [id number] SSU-C11) - Physical Exam General: No Cyanosis, Yes Anemia, No Jaundice, No Clubbing Lungs and Chest: Yes: Chest Expansion Full, Chest Expansion Symetrica, Percussion Note Resonant, Vessicular Breath Sounds. No: Crackles, Wheezes, Respiratory Distress, Use of Accessory Muscles Heart Rate and Rhythm: Regular JVP: Not Elevated Additional Cardiovascular: Yes: Normal Heart Sounds. No: Heart Murmur, Pedal Edema Abdominal Exam: Yes: Soft, Abdominal Tenderness - suprapubic area tenderness, Bowel Sounds Present. No: Abdominal Mass, Hepatomegaly - Neuro Orientation: Person Speech: Normal Results - Results Lab Results: Laboratory Results - last 24 hr 01/12/17 01/12/17 07:17 07:17 WBC 15.2 H RBC 3.18 L Hgb 9.1 L Hct 28 L MCV 88 MCH 29 MCHC 33 RDW 15 Plt Count 292 MPV 7 L Neut % (Auto) 83.3 H Lymph % (Auto) 7.4 L [place] % (Auto) 5.6 Eos % (Auto) 2.5 Baso % (Auto) 1.2 Absolute Neuts (auto) 12.7 H Absolute Lymphs (auto) 1.1 Absolute Monos (auto) 0.8 Absolute Eos (auto) 0.4 Absolute Basos (auto) 0.2 Absolute Nucleated RBC 0 Nucleated RBC % 0 Sodium 132 L Potassium 4.2 Chloride 104 Carbon Dioxide 21 L Anion Gap 7 BUN 26 H Creatinine 1.42 H Est GFR ( Amer) 60.8 Est GFR (Non-Af Amer) 47.3 BUN/Creatinine Ratio 18.3 Glucose 111 H Calcium 8.3 L C-Reactive Protein 204.35 H Other Results/Reports: RUN DATE: 01/12/17 [facility] LAB LIVE PAGE 1 RUN TIME: [address] [place] [id number] Specimen Inquiry Name: SADIQ OVERTON : [address]: Eric Muñiz MD Acct: [id number] Unit: [id number] AGE: 86 Location: [place] [address] Re01/11/17 SEX: M Status: ADM IN SPEC: [id number] CA: 01/11/[address]: Louis Lee MD REQ: [id number] RECD: 01/11/17 STATUS: RES OTHR DR: Eric Muñiz MD _ Rogelio Muse MD SOURCE: BLOOD,VENO SPDESC: ORDERED: Blood Cult Procedure Result Reported Site Aerobic Culture Bottle Preliminary 01/12/17- 652 ML No Growth Day 1 Anaerobic Culture Bottle Preliminary 01/12/17- 53 ML No Growth Day 1 * ML - MAIN LAB (PSC1) . END OF REPORT * ML = Testing performed at Main Lab DEPARTMENT OF PATHOLOGY, [address] [place] [address] Riley Mcduffie M.D. Director [facility] # [id number] Assessment - Problem List Assessment: Patient Problems Altered mental state (Acute) Bladder leak (Acute) Retained ureteral stent (Acute) S/P TURP (Acute) Sepsis (Acute) Transitional cell carcinoma, bladder (Acute) Urinary tract infection (Acute) Anemia (Chronic) Dementia (Chronic) Prediabetes (Chronic) Plan: Altered mental state (Acute) He is close to his baseline dementia - good correction memory, no short term memory Retained ureteral stent (Acute) S/P TURP (Acute)Sepsis (Acute)Transitional cell carcinoma, bladder (Acute)Urinary tract infection (Acute)Bladder leak (Acute) He continues to have tenderness suprapubically. The Quevedo catheter is draining freely. I spoke with microbiology - there is no evidence of any growth in the urine culture. He is not septic - there is no evidence of organ failure. I do not think he is at risk any longer. Anemia (Chronic) Ongoing Dementia (Chronic) This is exacerbated Prediabetes (Chronic) Not a problem Phone call with Siri (his ). She has shingles and has been managing only precariously with her at home at baseline owing to his dementia which has been progressing recently. She is not in a situation that could bring him home. I had a 10 min discussion on the phone: * He cannot go home in the next 7 - 10 days while he has a Quevedo catheter - previously when they tried this he had to be watched continuously as he would try to take it out. * She would accept a period in a skilled [facility]. However, this is not her preferred care home solution * They live at [facility] - she thinks the enhanced assisted living would be ideal for him. She has not discussed this with [facility] * Her daughter Sirisha is in favor of a higher level of care for her father and thinks her mother is over-extended * I do not think discharge to [facility] at present is a safe plan of care * I think we should speak with [facility] re: enhanced assisted living to determine if there is availability to send him directly or whether he requires a period of skilled care whilst the Quevedo is in situ. * He needs to transition to enhanced assisted living as Siri is no longer capable of being his caregiver with the level of care he requires for his demented circumstances
[2017-01-12] MEDS: Finasteride TAB* 5 MG PO SCH (11:51)
[2017-01-12] MEDS: oxyCODONE TAB* 5 MG TAB PO PRN (17:20)
[2017-01-12] MEDS: Donepezil TAB* 5 MG PO SCH (17:20)
[2017-01-12] MEDS: Oxybutynin TAB* 5 MG PO PRN (23:08)
[2017-01-13] MEDS: oxyCODONE TAB* 5 MG TAB PO PRN ×2 (00:03→17:33)
[2017-01-13] MEDS: Levofloxacin 250 MG IVPREMX(*) 250 MG/50 ML BAG IVPB SCH (02:23)
[2017-01-13] MEDS: Heparin VIAL(*) 5000 UNITS/ML VIAL (FIVE THOUSAND) SUBCUT SCH ×3 (06:08→21:26)
[2017-01-13] MEDS: Omeprazole CAP* 20 MG PO SCH (06:09)
[2017-01-13] MEDS: Oxybutynin TAB* 5 MG PO PRN ×4 (06:09→21:24)
[2017-01-13 06:31] LABS: Hematocrit 27 % (42-52); Hemoglobin 8.8 g/dl (14.0-18.0); Mean Corpuscular HGB Conc 33 g/dl (31-36); Mean Corpuscular Hemoglobin 30 pg (27-31); Mean Corpuscular Volume 90 fL (80-94); Mean Platelet Volume 7 um3 (7.4-10.4); Red Blood Count 2.97 10^6/ul (4.0-5.4); Red Cell Distribution Width 15 % (10.5-15); White Blood Count 10.3 10^3/ul (3.5-10.8)
[2017-01-13 06:47] LABS: BUN/Creatinine Ratio 17.2 (8-20); C Reactive Protein 123.25 mg/L (< 5.00); Calcium 8.1 mg/dL (8.6-10.3); EGFR Non-African American 50.5 (>60); Potassium 4.5 mmol/L (3.5-5.0)
[2017-01-13] MEDS: Docusate CAP* 100 MG PO SCH ×2 (09:25→21:24)
[2017-01-13] MEDS: Venlafaxine EXT RELEASE CAP* 37.5 MG PO SCH (09:25)
[2017-01-13] MEDS: Phenazopyridine TAB* 100 MG PO SCH ×3 (09:25→21:24)
[2017-01-13] MEDS: Finasteride TAB* 5 MG PO SCH (12:36)
[2017-01-13] MEDS: Donepezil TAB* 5 MG PO SCH (17:34)
[2017-01-14] MEDS: Levofloxacin 250 MG IVPREMX(*) 250 MG/50 ML BAG IVPB SCH (02:23)
[2017-01-14] MEDS: Oxybutynin TAB* 5 MG PO PRN ×4 (04:24→22:12)
[2017-01-14] MEDS: oxyCODONE TAB* 5 MG TAB PO PRN ×2 (04:25→22:18)
[2017-01-14] MEDS: Omeprazole CAP* 20 MG PO SCH (05:11)
[2017-01-14] MEDS: Heparin VIAL(*) 5000 UNITS/ML VIAL (FIVE THOUSAND) SUBCUT SCH ×3 (05:11→21:24)
[2017-01-14 05:26] LABS: Corrected Retic Count 1.1 % (0.5-1.5); Hematocrit 28 % (42-52); Hemoglobin 9.4 g/dl (14.0-18.0); Immature Retic Fraction 0.53; Mean Corpuscular HGB Conc 34 g/dl (31-36); Mean Corpuscular Hemoglobin 30 pg (27-31); Mean Corpuscular Volume 88 fL (80-94); Mean Platelet Volume 7 um3 (7.4-10.4); Red Blood Count 3.14 10^6/ul (4.0-5.4); Red Cell Distribution Width 15 % (10.5-15); White Blood Count 9.9 10^3/ul (3.5-10.8)
[2017-01-14 05:45] LABS: Albumin 2.6 g/dL (3.2-5.2); C Reactive Protein 116.8 mg/L (< 5.00); EGFR African American 63.4 (>60); EGFR Non-African American 49.3 (>60); Globulin 2.8 g/dL (2-4); Phosphorus 3.2 mg/dL (2.5-5.0); Potassium 4.4 mmol/L (3.5-5.0); Total Bilirubin 0.3 mg/dL (0.2-1.0); Total Protein 5.4 g/dL (6.4-8.9)
[2017-01-14 06:15] LABS: Ferritin 256.7 ng/mL (24-336)
[2017-01-14 06:19] LABS: Folate 10.69 ng/mL (>3.99)
--- NOTE | 2017-01-14 08:09 | PN ---
Subjective - Subjective Reason for Note: Progress Note History: He is with his daughter Sirisha. He states he is in the hospital, but is unable to give an account of why. He states it is 2010. He doesn't recognize me. He denies any pain/distress. He is afebrile. 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 Urinary tract infection (Acute) Anemia (Chronic) D64.9 Dementia (Chronic) F03.90 Prediabetes (Chronic) R73.03 Current Medications: Current Medications Acetaminophen (Tylenol Tab*) 650 mg PO Q6H PRN PRN Reason: FEVER/PAIN Last Admin: 01/12/17 00:42 Dose: 650 mg Docusate Sodium (Colace Cap*) 200 mg PO BID [facility] Last Admin: 01/13/17 21:24 Dose: 200 mg Donepezil HCl (Aricept Tab*) 10 mg PO QPM [facility] Last Admin: 01/13/17 17:34 Dose: 10 mg Finasteride (Proscar Tab*) 5 mg PO 1200 [facility] Last Admin: 01/13/17 12:36 Dose: 5 mg Heparin Sodium (Porcine) (Heparin Vial(*)) 5,000 units SUBCUT Q8HR [facility] Last Admin: 01/14/17 05:11 Dose: 5,000 units Hydralazine HCl (Apresoline Iv*) 10 mg IV Q4H PRN PRN Reason: Systolic >170 Levofloxacin/Dextrose (Levaquin 250 Mg Ivpremx(*)) 250 mg in 50 mls @ 33.333 mls/hr IVPB Q24H [facility] Last Admin: 01/14/17 02:23 Dose: 33.333 mls/hr Melatonin (Melatonin (Nf)) 3 mg PO BEDTIME PRN; Protocol PRN Reason: Sleep Last Admin: 01/12/17 22:38 Dose: 3 mg Omeprazole (Prilosec Cap*) 20 mg PO DAILY@0600 [facility] Last Admin: 01/14/17 05:11 Dose: 20 mg Ondansetron HCl (Zofran Inj*) 4 mg IV Q6H PRN PRN Reason: NAUSEA Oxybutynin Chloride (Ditropan Tab*) 2.5 mg PO Q4H PRN PRN Reason: BLADDER SPASMS Last Admin: 01/14/17 04:24 Dose: 2.5 mg Oxycodone HCl (Roxycodone Tab*) 5 mg PO Q4H PRN PRN Reason: PAIN Last Admin: 01/14/17 04:25 Dose: 5 mg Phenazopyridine HCl (Pyridium Tab*) 200 mg PO TID [facility] Last Admin: 01/13/17 21:24 Dose: 200 mg Tramadol HCl (Ultram*) 50 mg PO Q12H PRN PRN Reason: PAIN Last Admin: 01/13/17 01:33 Dose: 50 mg Venlafaxine HCl (Effexor Xr Cap*) 37.5 mg PO DAILY [facility] Last Admin: 01/13/17 09:25 Dose: 37.5 mg Home Medications: Home Medications Medication Instructions Recorded Confirmed Type Donepezil TAB* [Aricept TAB*] 10 mg PO QPM 02/29/16 01/11/17 History Finasteride TAB* [Proscar TAB*] 5 mg PO 1200 02/29/16 01/11/17 History Multiple Vitamin [Multiple 1 tab PO DAILY 02/29/16 01/11/17 History Vitamins] Nitroglycerin TAB 0.4 MG* 0.4 mg SL . NEEDED PRN 02/29/16 01/11/17 History Venlafaxine EXT RELEASE CAP* 2 cap PO QAM 02/29/16 01/11/17 History [Effexor Xr CAP*] Allergies: Allergies Allergy/AdvReac Type Severity Reaction Status Date / Time No Known Allergies Allergy Verified 01/09/17 06:27 Objective - Vital Signs Vital Signs: Vital Signs 01/13/17 01/13/17 01/13/17 11:33 15:43 17:33 Temperature 97.4 F 98.3 F Pulse Rate 79 78 Respiratory 17 20 18 Rate Blood Pressure 146/70 134/67 (mmHg) O2 Sat by Pulse 98 97 Oximetry 01/13/17 01/13/17 01/13/17 19:12 19:14 19:33 Temperature Pulse Rate Respiratory 16 16 16 Rate Blood Pressure (mmHg) O2 Sat by Pulse Oximetry 01/13/17 01/14/17 01/14/17 20:31 00:20 04:25 Temperature 98.3 F 99.0 F Pulse Rate 108 67 Respiratory 18 16 16 Rate Blood Pressure 157/93 157/76 (mmHg) O2 Sat by Pulse 97 96 Oximetry 01/14/17 01/14/17 01/14/17 04:37 06:25 07:20 Temperature 98.2 F 98.4 F Pulse Rate 83 73 Respiratory 18 16 17 Rate Blood Pressure 151/70 126/75 (mmHg) O2 Sat by Pulse 93 94 Oximetry - Intake and Output Intake and Output: Intake & Output 01/11/17 01/12/17 01/13/17 01/14/17 11:59 11:59 11:59 11:59 Intake Total 100 3123 1560 1880 Output Total 205 1725 1850 Balance 100 1073 -165 30 Weight 140 lb 146 lb 14.4 oz 145 lb 4.8 oz 145 lb 8 oz Intake: IV Fluids 100 1203 NS (0.9%) 1203 IVPB 50 ABX - LEVOFLOXACIN 50 Oral 1870 1560 1880 Output: Urine 400 Quevedo 2049 1325 1850 Other: # Bowel Movements 0 ADLs: Meal Record Start: 01/11/17 03: 53 Freq: Status: Active Created 01/11/17 03:53 System (Rec: 01/11/17 03:53 System SSU-C50) Document 01/11/17 10:22 [id number] (Rec: 01/11/17 10:22 [id number] SSU-C19) Document 01/11/17 19:11 [id number] (Rec: 01/11/17 19:12 [id number] SSU-C02) Document 01/12/17 10:22 [id number] (Rec: 01/12/17 10:23 [id number] SSU-C03) Document 01/12/17 18:07 [id number] (Rec: 01/12/17 18:07 [id number] SSU-C05) Document 01/13/17 09:40 [id number] (Rec: 01/13/17 09:41 [id number] SSU-C05) Document 01/13/17 13:46 [id number] (Rec: 01/13/17 13:47 [id number] SSU-C05) Document 01/13/17 18:54 [id number] (Rec: 01/13/17 18:55 [id number] SSU-C01) Intake and Output Start: 01/10/17 20: 50 Freq: Status: Active Created 01/10/17 20:50 System (Rec: 01/10/17 20:50 System [id number]) Intake and Output Start: 01/11/17 03: 53 Freq: DAILY@0600,1400,2200 Status: Active Created 01/11/17 03:53 System (Rec: 01/11/17 03:53 System SSU-C50) Document 01/11/17 14:00 [id number] (Rec: 01/11/17 15:30 [id number] SSU-C19) Document 01/11/17 21:03 [id number] (Rec: 01/11/17 21:04 [id number] SSU-C19) Document 01/11/17 21:49 [id number] (Rec: 01/11/17 21:49 [id number] SSU-C19) Document 01/12/17 05:45 [id number] (Rec: 01/12/17 05:45 [id number] SSU-M05) Document 01/12/17 05:46 [id number] (Rec: 01/12/17 05:46 [id number] SSU-C11) Document 01/12/17 12:37 [id number] (Rec: 01/12/17 12:37 [id number] SSU-C04) Document 01/12/17 14:00 [id number] (Rec: 01/12/17 15:40 [id number] SSU-C03) Document 01/12/17 19:09 [id number] (Rec: 01/12/17 19:09 [id number] SSU-C05) Document 01/12/17 22:00 [id number] (Rec: 01/12/17 23:00 [id number] SSU-C05) Document 01/13/17 06:00 [id number] (Rec: 01/13/17 06:20 [id number] SSU-C05) Document 01/13/17 13:46 [id number] (Rec: 01/13/17 13:47 [id number] SSU-C05) Document 01/13/17 22:00 [id number] (Rec: 01/13/17 23:02 [id number] SSU-C01) Document 01/14/17 05:35 [id number] (Rec: 01/14/17 05:36 [id number] U-C19) - Physical Exam General: No Cyanosis, No Jaundice, No Clubbing Lungs and Chest: Yes: Chest Expansion Full, Chest Expansion Symetrica, Percussion Note Resonant, Vessicular Breath Sounds. No: Crackles, Wheezes Heart Rate and Rhythm: Regular Additional Cardiovascular: Yes: Normal Heart Sounds. No: Heart Murmur, Pedal Edema Abdominal Exam: Yes: Soft, Abdominal Tenderness - mild tenderness suprapubic region, Bowel Sounds Present. No: Distention Results - Results Lab Results: Laboratory Results - last 24 hr 01/14/17 01/14/17 05:09 05:09 WBC 9.9 RBC 3.14 L RBC (Retic) 3.14 L Hgb 9.4 L Hct 28 L HCT (Retic) 28 L MCV 88 MCH 30 MCHC 34 RDW 15 Plt Count 309 MPV 7 L Neut % (Auto) 70.6 Lymph % (Auto) 14.4 L [place] % (Auto) 10.0 H Eos % (Auto) 4.0 Baso % (Auto) 1.0 Absolute Neuts (auto) 7.0 Absolute Lymphs (auto) 1.4 Absolute Monos (auto) 1.0 H Absolute Eos (auto) 0.4 Absolute Basos (auto) 0.1 Absolute Nucleated RBC 0 Nucleated RBC % 0 Retic Count, Calc 1.7 H Corrected Retic Count 1.1 Retic Shift Factor 2.0 Retic Production Index 0.60 Immature Retic Fraction 0.53 Mean Retic Volume 115.6 Sodium 133 Potassium 4.4 Chloride 103 Carbon Dioxide 24 Anion Gap 6 BUN 26 H Creatinine 1.37 H Est GFR ( Amer) 63.4 Est GFR (Non-Af Amer) 49.3 BUN/Creatinine Ratio 19.0 Glucose 99 Calcium 8.0 L Phosphorus 3.2 Iron 28 L TIBC 224 L % Saturation 13 L Unsat Iron Binding 196 Ferritin 256.7 Total Bilirubin 0.30 AST 17 ALT 11 Alkaline Phosphatase 79 C-Reactive Protein 116.80 H Total Protein 5.4 L Albumin 2.6 L Globulin 2.8 Albumin/Globulin Ratio 0.9 L Vitamin B12 1239 H Folate 10.69 Assessment - Problem List Assessment: Patient Problems Altered mental state (Acute) Bladder leak (Acute) Retained ureteral stent (Acute) S/P TURP (Acute) Transitional cell carcinoma, bladder (Acute) Urinary tract infection (Acute) Anemia (Chronic) Dementia (Chronic) Prediabetes (Chronic) Plan: Bladder leak (Acute)Retained ureteral stent (Acute)S/P TURP (Acute) Transitional cell carcinoma, bladder (Acute) Urinary tract infection (Acute) He is recovering. The Quevedo catheter is patent. He has no symptoms of infection at present. The CRP, % neuts are coming down. He has negative urine cultures. Anemia (Chronic) stable Dementia (Chronic)Altered mental state (Acute) He is more coherent today - knows he is in the hospital and is conversational. He appears aware he is living usually at [facility]. Prediabetes (Chronic) not exacerbated I spoke with the patient and his daughter Sirisha. I discussed discharge plans. Since he is at risk of pulling out his Quevedo, he needs to be either in a SNF or at enhanced assisted living. The latter is the better plan as he needs a higher level of care as his is unable to be his primary transition of care specialist. I spoke with discharge planning who are going to consider these possibilities
[2017-01-14] MEDS: Venlafaxine EXT RELEASE CAP* 37.5 MG PO SCH (09:14)
[2017-01-14] MEDS: Phenazopyridine TAB* 100 MG PO SCH ×3 (09:14→21:24)
[2017-01-14] MEDS: Docusate CAP* 100 MG PO SCH ×2 (09:14→21:24)
[2017-01-14] MEDS: Finasteride TAB* 5 MG PO SCH (12:16)
[2017-01-14] MEDS: Donepezil TAB* 5 MG PO SCH (18:11)
[2017-01-14] MEDS ORDERED: Magnesium Hydroxide LIQ* 30 ML UDC PO PRN (23:59)
[2017-01-15] MEDS ORDERED: Sodium Phosphate ADULT ENEMA* 118 ml bottle PR PRN
[2017-01-15] MEDS: CMCS: Melatonin (NF) 3 MG TAB PO PRN (00:30)
[2017-01-15] MEDS: Levofloxacin 250 MG IVPREMX(*) 250 MG/50 ML BAG IVPB SCH (02:19)
[2017-01-15] MEDS: Oxybutynin TAB* 5 MG PO PRN ×2 (02:19→09:27)
[2017-01-15] MEDS: oxyCODONE TAB* 5 MG TAB PO PRN (02:20)
[2017-01-15] MEDS: Omeprazole CAP* 20 MG PO SCH (05:47)
[2017-01-15] MEDS: Heparin VIAL(*) 5000 UNITS/ML VIAL (FIVE THOUSAND) SUBCUT SCH (05:47)
[2017-01-15] MEDS: Docusate CAP* 100 MG PO SCH (09:26)
[2017-01-15] MEDS: Phenazopyridine TAB* 100 MG PO SCH ×2 (09:26→15:36)
[2017-01-15] MEDS: Venlafaxine EXT RELEASE CAP* 37.5 MG PO SCH (09:27)
--- NOTE | 2017-01-15 13:00 | DS ---
CC: Rogelio Muse MD DISCHARGE SUMMARY: DATE OF ADMISSION: 01/10/17 DATE OF DISCHARGE: 01/14/17 DISCHARGE DIAGNOSES: 1. Urinary retention. 2. Urinary tract infection. 3. 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 4. Altered mental status secondary to infectious delirium. COMORBIDITIES: 1. Transitional carcinoma of the bladder. 2. Dementia. 3. Chronic anemia. 4. Prediabetes. 5. Recent history of TURP dated 01/09/17 with right ureteric stent replacement and fulguration of a superficial bladder tumor. HISTORY: William Grimm is an 86-year-old male. He lives with his at [facility]. He has longstanding dementia that is progressing. He underwent surgery with Dr. 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 He underwent cystoscopy, transurethral resection and fulguration of the bladder tumor which was 2 to 3 cm and he had a right retrograde and right ureteral stent change. He was sent home without a Quevedo catheter as on previous occasions when he had a Quevedo catheter at home, he required constant supervision as with his memory problems tries to take out the Quevedo. He came back to the hospital 2 days later with altered mental status, signs of urinary infection and a urinoma. His presentation is documented in Dr. Lee's admitting history and physical. PHYSICAL EXAMINATION: At admission, temperature 36.9, pulse 109, respirations 20, blood pressure 136/53, oxygen saturation 96%. He had diffuse moderate tenderness of his abdomen with voluntary guarding, but no rebound, rigidity and normal bowel sounds. INITIAL LABORATORY: White count 19.9, hemoglobin 9.8, hematocrit 29, platelets 308. Chemistry: Sodium is 125, potassium 4.4, chloride 94, bicarbonate 20 and BUN 32, creatinine 2.16, lactic acid 1.0. C-reactive protein 215. 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 INITIAL IMPRESSION: Urinary tract infection following cystoscopic bladder resection of superficial carcinoma and ureteral stenting. He was admitted for IV levofloxacin, IV fluids for his prerenal azotemia. HOSPITAL INVESTIGATION: Microbiology: Urine and venous blood did not culture any organisms; however, he responded clinically to IV levofloxacin. White count came down from 19.9 to 9.9 over the hospitalization, neutrophil percent 88.7 down to 70.6. C-reactive protein from 215 to 116.8. Hi sodium came up to 133. His BUN and creatinine improved to 26/1.37. He was seen in consultation by Dr. Muse and I spoke with Dr. Muse. 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 This would be resorbed and a Quevedo would help the pressure of the bladder so that the defect in the bladder wall would heal. He required at least a week to 10 days of Quevedo catheter in situ and hence needed to be in a safe place for this to happen. HOSPITAL COURSE: The patient initially had altered mental status and then was back to his baseline dementia. He did not have a fever during his hospitalization. He tolerated the levofloxacin. His prerenal azotemia improved. He responded as noted above to the antibacterials and the conservative therapy. PHYSICAL EXAMINATION: On the day of discharge, he is alert, disoriented x2. He knows his name. He is cooperative and conversational. Vital Signs: Temperature 97.3, pulse 66, respirations 16, oxygen saturation 96%, blood pressure 146/61. No cyanosis, anemia, jaundice, clubbing or lymphadenopathy. Cardiovascular System: Pulse regular. Normal character and volume. Venous pressure was not elevated. [place] beat not displaced. Heart sounds were normal. No added sounds or murmurs. No pedal edema. Respiratory System: Chest was clear. Abdomen: Mild suprapubic tenderness; otherwise, no masses or organomegaly. No guarding or rigidity. Bowel sounds present. Nervous system: He is alert, disoriented, pleasantly demented. Cranial nerves II through XII intact. Arms and Legs: Full power, normal tone and coordination. ASSESSMENT AND PLAN: 1. Urinary tract infection with altered mental status due to delirium. Urinary retention, recent TURP, fulguration of bladder tumor and replacement of ureteric stent. This patient requires a week of 10 days of Quevedo catheter in situ. This cannot be done safely at home as his is unable to cope at present. Hence we are referring him for this and also for subacute rehabilitation to [facility]. He will follow with Dr. Rogelio Muse about 7 to 10 days afterwards and he will decide upon the removal of the Quevedo catheter. He will complete another 7 days of oral levofloxacin despite the negative urine and blood cultures as clinically he is responding to this drug. 2. Anemia. He has mild iron deficiency anemia. We will address this after his discharge. 3. Dementia. This is slowly progressing and is exacerbated by his acute infection. Long-term consideration needs to be given to either enhanced assisted living or longterm home placement. 4. Prediabetes. This is not a problem. DISCHARGE MEDICATIONS: 1. Levofloxacin 250 mg p.o. daily. 2. Venlafaxine ER 37.5 mg daily. 3. Nitroglycerin 0.4 mg p.r.n. sublingually for angina p.r.n. 4. Finasteride 5 mg daily. 5. Donepezil (Aricept) 10 mg q.p.m. 6. Multivitamin 1 a day. [id number]/[facility] #: [id number] [facility]
[2017-01-15] MEDS: Finasteride TAB* 5 MG PO SCH (13:02)
[2017-01-15 16:06] VITALS: BP 142/65
--- NOTE | 2017-01-27 19:33 | ED ---
jero Strange Timothy, scribed for Wang Rizzo MD on 01/10/17 at 2345 . GI/ HPI - HPI Summary HPI Summary: William Grimm is an 86 yo male presenting to [facility] with 6/10 left sided groin pain S/P placement of a right kidney stent yesterday when he had his bladder tumors removed. Pt believes his Sx are due to his hernia. His is present in room and provided most of the Hx due to Pt short-term memory loss. His notes frequent urination since last night. His MHx includes angina, SVT, cauda equina, short-term memory loss, dementia, right kidney stent, right kidney tumor , bladder tumor, herniated disk, anemia. - History of Current Complaint Chief Complaint: EDUrogenitalProblems Time Seen by Provider: 01/10/17 23:47 Stated Complaint: GROIN PAIN/DX HERNIA Hx Obtained From: Patient Onset/Duration: Started Days Ago, Still Present Timing: Constant Severity: Moderate Current Severity: Moderate Pain Intensity: 6 Location of Pain: Groin - left Associated Signs and Symptoms: Positive: Other: - urinary frequency - Allergy/Home Medications Allergies/Adverse Reactions: Allergies Allergy/AdvReac Type Severity Reaction Status Date / Time No Known Allergies Allergy Verified 01/09/17 06:27 PMH/Surg Hx/FS Hx/Imm Hx Endocrine/Hematology History: Reports: Hx Anemia - [id number] STATES NO PROBLEMS SINCE Denies: Hx Diabetes Cardiovascular History: Reports: Hx Angina - LAST ATTACK OF ANGINA-10/2014, Other Cardiovascular Problems/Disorders - svt Denies: Hx Hypertension Respiratory History: Denies: Other Respiratory Problems/Disorders GI History: Denies: Other GI Disorders History: Reports: Hx Renal Disease, Other Problems/Disorders - RIGHT KIDNEY TUMOR, BLADDER TUMOR, RIGHT STENT IN PLACE Denies: Hx Dialysis Musculoskeletal History: Denies: Other Musculoskeletal History Sensory History: Reports: Hx Contacts or Glasses - GLASSES Denies: Hx Cataracts, Hx Glaucoma, Hx Hearing Aid Opthamlomology History: Reports: Hx Contacts or Glasses - GLASSES Denies: Hx Cataracts, Hx Glaucoma Neurological History: Reports: Hx Nerve Disease - CAUDA EQUINA- SEES DR. ARCHIBALD FOR-LAST SEEN-11/2016-SLIGHT E, Other Neuro Impairments/Disorders - SHORT TERM MEMORY LOSS - Cancer History Cancer Type, Location and Year: bladder cancer Hx Chemotherapy: No - Surgical History Surgery Procedure, Year, and Place: MASTOID LEFT SURGERY - A CHILD. SEVERAL PROCEDURES FOR SKIN CANCER THRU LIFETIME. left INGUINAL HERNIA REPAR. 03/07/16 , BLADDER TUMORS, [facility]. 07/18/16, BLADDER TUMORS, STENT PLACED. 09/26/16, BLADDER TUMORS, STENT REPLACEMENT. T/A A CHILD Hx Anesthesia Reactions: - INC OF URINE HAS WORSENED SINCE LAST SURGERY Infectious Disease History: No Infectious Disease History: Denies: Traveled Outside the [place] in Last 30 Days - Family History Known Family History: Negative: Cardiac Disease, Hypertension, Diabetes Family History: Mother had dementia - Social History Alcohol Use: None Substance Use Type: Reports: None Smoking Status (MU): Never Smoked Tobacco Have You Smoked in the Last Year: No Review of Systems Constitutional: Negative Eyes: Negative ENT: Negative Cardiovascular: Negative Respiratory: Negative Gastrointestinal: Negative Positive: frequency, pain - left groin Musculoskeletal: Negative Skin: Negative Neurological: Negative Psychological: Normal All Other Systems Reviewed And Are Negative: Yes Physical Exam Triage Information Reviewed: Yes Vital Signs On Initial Exam: Initial Vitals Temp Pulse Resp BP Pulse Ox 98.0 F 85 18 148/68 98 01/10/17 20:50 01/10/17 20:50 01/10/17 20:50 01/10/17 20:50 01/10/17 20:50 Vital Signs Reviewed: Yes Appearance: Positive: Well-Appearing, Pain Distress - moderate discomfort Skin: Positive: Warm Head/Face: Positive: Normal Head/Face Inspection Eyes: Positive: MARISOL ENT: Positive: Hearing grossly normal Neck: Positive: Supple Respiratory/Lung Sounds: Positive: Breath Sounds Present Cardiovascular: Positive: RRR Abdomen Description: Positive: Soft, Other: - suprapubic tenderness Bowel Sounds: Positive: Present Musculoskeletal: Positive: Strength/ROM Intact Neurological: Positive: Alert, Oriented to Person Place, Time Psychiatric: Positive: Affect/Mood Appropriate Diagnostics - Vital Signs Vital Signs Temp Pulse Resp BP Pulse Ox 01/10/17 22:14 98.5 F 76 16 156/70 100 01/10/17 20:50 98.0 F 85 18 148/68 98 - Laboratory Lab Results: Lab Results 01/11/17 01/11/17 01/11/17 Range/Units 00:10 00:10 00:10 WBC 19.9 H (3.5-10.8) 10^3/ul RBC 3.42 L (4.0-5.4) 10^6/ul Hgb 9.8 L (14.0-18.0) g/dl Hct 29 L (42-52) % MCV 86 (80-94) fL MCH 29 (27-31) pg MCHC 34 (31-36) g/dl RDW 15 (10.5-15) % Plt Count 308 (150-450) 10^3/ul MPV 7 L (7.4-10.4) um3 Neut % (Auto) 88.7 H (38-83) % Lymph % (Auto) 5.1 L (25-47) % [place] % (Auto) 5.7 (1-9) % Eos % (Auto) 0.3 (0-6) % Baso % (Auto) 0.2 (0-2) % Absolute Neuts (auto) 17.7 H (1.5-7.7) 10^3/ul Absolute Lymphs (auto) 1.0 (1.0-4.8) 10^3/ul Absolute Monos (auto) 1.1 H (0-0.8) 10^3/ul Absolute Eos (auto) 0.1 (0-0.6) 10^3/ul Absolute Basos (auto) 0 (0-0.2) 10^3/ul Absolute Nucleated RBC 0 10^3/ul Nucleated RBC % 0 Sodium 125 L (133-145) mmol/L Potassium 4.4 (3.5-5.0) mmol/L Chloride 94 L (101-111) mmol/L Carbon Dioxide 20 L (22-32) mmol/L Anion Gap 11 (2-11) mmol/L BUN 32 H (6-24) mg/dL Creatinine 2.16 H (0.67-1.17) mg/dL Est GFR ( Amer) 37.5 (>60) Est GFR (Non-Af Amer) 29.1 (>60) BUN/Creatinine Ratio 14.8 (8-20) Glucose 95 (70-100) mg/dL Lactic Acid 1.0 (0.5-2.0) mmol/L Calcium 8.8 (8.6-10.3) mg/dL Magnesium 1.9 (1.9-2.7) mg/dL Total Bilirubin 0.70 (0.2-1.0) mg/dL AST 15 (13-39) U/L ALT 8 (7-52) U/L Alkaline Phosphatase 79 (34-104) U/L C-Reactive Protein 214.88 H (< 5.00) mg/L Total Protein 6.5 (6.4-8.9) g/dL Albumin 3.4 (3.2-5.2) g/dL Globulin 3.1 (2-4) g/dL Albumin/Globulin Ratio 1.1 (1-3) Urine Color Urine Appearance Urine pH (5-9) Ur Specific Williams (1.010-1.030) Urine Protein (Negative) Urine Ketones (Negative) Urine Blood (Negative) Urine Nitrate (Negative) Urine Bilirubin (Negative) Urine Urobilinogen (Negative) Ur Leukocyte Esterase (Negative) Urine WBC (Auto) (Absent) Urine RBC (Auto) (Absent) Ur Squamous Epith Cells (Absent) Urine Bacteria (Absent) Urine Glucose (Negative) 01/11/17 Range/Units 01:10 WBC (3.5-10.8) 10^3/ul RBC (4.0-5.4) 10^6/ul Hgb (14.0-18.0) g/dl Hct (42-52) % MCV (80-94) fL MCH (27-31) pg MCHC (31-36) g/dl RDW (10.5-15) % Plt Count (150-450) 10^3/ul MPV (7.4-10.4) um3 Neut % (Auto) (38-83) % Lymph % (Auto) (25-47) % [place] % (Auto) (1-9) % Eos % (Auto) (0-6) % Baso % (Auto) (0-2) % Absolute Neuts (auto) (1.5-7.7) 10^3/ul Absolute Lymphs (auto) (1.0-4.8) 10^3/ul Absolute Monos (auto) (0-0.8) 10^3/ul Absolute Eos (auto) (0-0.6) 10^3/ul Absolute Basos (auto) (0-0.2) 10^3/ul Absolute Nucleated RBC 10^3/ul Nucleated RBC % Sodium (133-145) mmol/L Potassium (3.5-5.0) mmol/L Chloride (101-111) mmol/L Carbon Dioxide (22-32) mmol/L Anion Gap (2-11) mmol/L BUN (6-24) mg/dL Creatinine (0.67-1.17) mg/dL Est GFR ( Amer) (>60) Est GFR (Non-Af Amer) (>60) BUN/Creatinine Ratio (8-20) Glucose (70-100) mg/dL Lactic Acid (0.5-2.0) mmol/L Calcium (8.6-10.3) mg/dL Magnesium (1.9-2.7) mg/dL Total Bilirubin (0.2-1.0) mg/dL AST (13-39) U/L ALT (7-52) U/L Alkaline Phosphatase (34-104) U/L C-Reactive Protein (< 5.00) mg/L Total Protein (6.4-8.9) g/dL Albumin (3.2-5.2) g/dL Globulin (2-4) g/dL Albumin/Globulin Ratio (1-3) Urine Color Yellow Urine Appearance Cloudy Urine pH 5.0 (5-9) Ur Specific Williams 1.006 L (1.010-1.030) Urine Protein 1+(30 mg/dl) H (Negative) Urine Ketones Trace H (Negative) Urine Blood 2+ H (Negative) Urine Nitrate Negative (Negative) Urine Bilirubin Negative (Negative) Urine Urobilinogen Negative (Negative) Ur Leukocyte Esterase 2+ H (Negative) Urine WBC (Auto) 3+(>20/hpf) H (Absent) Urine RBC (Auto) 2+(6-10/hpf) H (Absent) Ur Squamous Epith Cells Present H (Absent) Urine Bacteria 1+ H (Absent) Urine Glucose Negative (Negative) Result Diagrams: 01/14/17 05:09 01/14/17 05:09 Lab Statement: Any lab studies that have been ordered have been reviewed, and results considered in the medical decision making process. - CT A/P CT Interpretation: Positive (See Comments) - IMPRESSION: 12.3 cm anterior pelvic extraperitoneal fluid collection could represent urine leak and/or urinoma, just above the space of Retzius. No hydronephrosis. Probably mild cystitis. Mild prostate enlargement. Small left inguinal ernia containing sigmoid colon without bowel obstruction. Questionable anascara. GIGU Course/Dx - Course Assessment/Plan: William Grimm is an 86 yo male presenting to [facility] with 6/10 left groin pain S/P right kidney stent and bladder tumor removal yesterday. Pt medication list reviewed this visit. In the Ed course he received morphine for pain management, levaquin, and IV fluids. His CT A/P suggests a 12.3 cm anterior pelvic extraperitoneal fluid collection could represent urine leak and/ or urinoma, just above the space of Retzius. No hydronephrosis. Probably mild cystitis. Mild prostate enlargement. Small left inguinal ernia containing sigmoid colon without bowel obstruction. Questionable anascara. After clinical examination and review of his lab and imaging studies, as well as discussion with Dr. Lee and Dr. Muse, he will be admitted to [facility]. 0152 - Dr. Lee (hospitalist) - discussed Pt condition, recommends urology consult after obtaining CT A/P results. 0324 - Dr. Muse (urology) - discussed Pt condition, recommends admission. - Diagnoses Provider Diagnoses: Hematuria - Physician Notifications Discussed Care Of Patient With: Louis Lee - Discussed Pt condition and Dr. Muse consult, accepts Pt for admission. Time Discussed With Above Provider: 03:29 Instructed by Provider To: Admit As Inpatient Discharge - Discharge Plan Condition: Stable Disposition: ADMITTED TO [facility] documentation as recorded by the jero rico Timothy accurately reflects the service I personally performed and the decisions made by me, Wang Rizzo MD.
== END 2017-01-15 16:15 | disposition home or self-care (01) | DRG 690 ==
LOC: ED 20:42 → SSU 01-11 01:58
PROVIDERS: ADMIT Hospitalist; ATTEND Internal Medicine
DX: N39.0 Urinary tract infection, site not specified (principal); C67.9 Malignant neoplasm of bladder, unspecified; G30.9 Alzheimer's disease, unspecified; F05 Delirium due to known physiological condition; F32.9 Major depressive disorder, single episode, unspecified; D64.89 Other specified anemias; K40.90 Unilateral inguinal hernia, without obstruction or gangrene, not specified as recurrent; F02.80 Dementia in other diseases classified elsewhere, unspecified severity, without behavioral disturbance, psychotic disturbance, mood disturbance, and anxiety; R33.9 Retention of urine, unspecified; N40.0 Benign prostatic hyperplasia without lower urinary tract symptoms; N36.8 Other specified disorders of urethra; Z66 Do not resuscitate; Z82.49 Family history of ischemic heart disease and other diseases of the circulatory system; Z79.899 Other long term (current) drug therapy
CPT/HCPCS: 36415; 74176; 80048; 80053; 81003; 81015; 82607; 82728; 82746; 83540; 83550; 83605; 83735; 84100; 85025; 85045; 86140; 87040; 87086; 96374; 99284; A9270-GY; J1644; J1956; J2270